=== PATIENT | male | born 1995 | race Caucasian/White ===

== ENCOUNTER 2016-11-09 19:19 | Emergency (ER) | payer BC ==
[2016-11-09 21:04] VITALS: BP 123/65
--- NOTE | 2016-11-09 21:31 | UC ---
FLU HPI - HPI Summary HPI Summary: 21 male presents to with complaints of cough, congestion and feeling tired for the past week. Patient states his symptoms began like a cold and have seemed to worsen and not get better. Denies nausea, vomiting, fever, trouble breathing, chest pain and sore throat. No other complaints. Took one Mucinex yesterday and it seemed to worsen his cough. Also tried OTC sinus medication and ibuprofen without relief. No PMHx. - History of Current Complaint Chief Complaint: UCRespiratory Stated Complaint: CONGESTION/COUGH Time Seen by Provider: 11/09/16 21:14 Hx Obtained From: Patient Onset/Duration: Sudden Onset, Lasting Weeks, Still Present, Worse Since Severity Currently: Mild Severity Initially: Moderate Pain Intensity: 0 Pain Scale Used: 0-10 Numeric Associated Signs & Symptoms: Positive: Cough, Nasal Congestion, Headache - Allergy/Home Medications Allergies/Adverse Reactions: Allergies Allergy/AdvReac Type Severity Reaction Status Date / Time No Known Allergies Allergy Verified 11/09/16 21:04 PMH/Surg Hx/FS Hx/Imm Hx - Additional Past Medical History Additional PMH: No DM HTN or asthma - Surgical History Surgical History: Yes Surgery Procedure, Year, and Place: DENTAL SURGERY - Family History Known Family History: Positive: Unknown - Social History Alcohol Use: Occasionally Substance Use Type: None Smoking Status (MU): Never Smoked Tobacco Review of Systems Constitutional: Negative Eyes: Negative ENT: Nasal Discharge, Sinus Congestion Respiratory: Cough Cardiovascular: Negative Gastrointestinal: Negative Musculoskeletal: Negative Neurological: Headache All Other Systems Reviewed And Are Negative: Yes Physical Exam Triage Information Reviewed: Yes Appearance: Well-Appearing, No Pain Distress, Well-Nourished Vital Signs: Initial Vital Signs Temp 98.8 F 11/09/16 20:59 Pulse 71 11/09/16 20:59 Resp 16 11/09/16 20:59 BP 123/65 11/09/16 20:59 Pulse Ox 100 11/09/16 20:59 afebrile, non hypoxic Vital Signs Reviewed: Yes Eyes: Positive: Conjunctiva Clear ENT: Positive: Normal ENT inspection, Hearing grossly normal, Pharynx normal, Nasal drainage, TMs normal - serous effusion b/l. Negative: Nasal congestion, Tonsillar swelling, Tonsillar exudate, Trismus, Muffled/hoarse voice Dental: Negative: Percussion Tenderness @, Cervical Lymphadenopathy Neck: Positive: Supple, Nontender Respiratory: Positive: Chest non-tender, Lungs clear, Normal breath sounds, No respiratory distress, No accessory muscle use. Negative: Respiratory distress, Decreased breath sounds, Crackles, Rhonchi, Stridor, Wheezing, Expiration Cardiovascular: Positive: RRR, No Murmur, Pulses Normal Abdomen Description: Positive: Nontender, Soft Bowel Sounds: Positive: Present Musculoskeletal: Positive: Strength Intact, ROM Intact Neurological: Positive: Alert Skin Exam: Normal Flu Course/Dx - Course Course Of Treatment: appears to be suffering from UTI. symptomatic measures. serous effusion b/l. claritin, emergen-c, flonase and mucinex. Follow up with health center. aware of wrosening signs and symptoms. fluids and rest. - Differential Dx/Diagnosis Differential Diagnosis/HQI/PQRI: Bronchitis, Influenza, Upper Respiratory Infection Provider Diagnoses: URI Discharge - Discharge Plan Condition: Stable Disposition: HOME Patient Education Materials: Upper Respiratory Infection (ED) Referrals: [facility] [place] [facility] [Outside] Additional Instructions: Recommend taking Claritin, using Flonase nasal spray, continue Mucinex and taking Emergen-C to help with symptoms. Cough medicine at night if cough is keeping you up at night. Continue to rest and increase fluid intake. Recommend taking it easy for the next couple of days to allow immune system to fight infection. Symptoms may linger up to 3 weeks. If symptoms do not improve or worsen please seek medical attention promptly, as discussed. Follow up with Health Center to ensure improvement.
== END 2016-11-09 21:40 | disposition home or self-care (01) ==
LOC: UCCORT 19:19
DX: J06.9 Acute upper respiratory infection, unspecified (principal)
CPT/HCPCS: 99201; G0463

== ENCOUNTER 2017-04-20 16:16 | Emergency (ER) | payer BC ==
[2017-04-20 16:33] VITALS: BP 118/73
--- NOTE | 2017-04-20 17:22 | UC ---
Respiratory Complaint HPI - HPI Summary HPI Summary: 2-3 weeks of worsening sinus pain and congestion, thick green nasal drainage, ear and nasal congestion - History of Current Complaint Chief Complaint: UCGeneralIllness Stated Complaint: COUGH, CONGESTION Time Seen by Provider: 04/20/17 17:17 Hx Obtained From: Patient Onset/Duration: Gradual Onset, Lasting Weeks - 3, Still Present Timing: Constant Severity Initially: Moderate Severity Currently: Moderate Pain Intensity: 7 Pain Scale Used: 0-10 Numeric Aggravating Factors: Nothing Alleviating Factors: Nothing Associated Signs And Symptoms: Positive: URI, Nasal Congestion, Sinus Discomfort - Allergies/Home Medications Allergies/Adverse Reactions: Allergies Allergy/AdvReac Type Severity Reaction Status Date / Time DUST Allergy Dry Eyes Uncoded 04/20/17 16:24 Home Medications: Home Medications Ascorbic Acid/Multivit-Min [Emergen-C 1,000 mg Packet] 04/20/17 [History] D-Methorphan/PE/Acetaminophen [Cold Multi-Symptom [place]] 04/20/17 [History] Ibuprofen 600 mg PO 04/20/17 [History] Levocetirizine Dihydrochloride [Xyzal] 5 mg PO 04/20/17 [History] Loratadine [Claritin] 04/20/17 [History] guaiFENesin [Mucinex] 04/20/17 [History] PMH/Surg Hx/FS Hx/Imm Hx Previously Healthy: Yes - Surgical History Surgical History: Yes Surgery Procedure, Year, and Place: DENTAL SURGERY - Family History Known Family History: Positive: Unknown - Social History Occupation: Student Lives: With Family Alcohol Use: Occasionally Substance Use Type: None Smoking Status (MU): Never Smoked Tobacco Household Exposure Type: Cigarettes Review of Systems Constitutional: Fatigue Skin: Negative Eyes: Negative ENT: Nasal Discharge, Sinus Congestion, Sinus Pain/Tenderness Respiratory: Negative Cardiovascular: Negative Gastrointestinal: Negative Genitourinary: Negative Motor: Negative Neurovascular: Negative Musculoskeletal: Negative Neurological: Headache Psychological: Negative Is Patient Immunocompromised?: No All Other Systems Reviewed And Are Negative: Yes Physical Exam Triage Information Reviewed: Yes Appearance: Well-Nourished, Ill-Appearing - mild, Pain Distress - mild Vital Signs: Initial Vital Signs Temp 98.2 F 04/20/17 16:28 Pulse 72 04/20/17 16:28 Resp 16 04/20/17 16:28 BP 118/73 04/20/17 16:28 Pulse Ox 96 04/20/17 16:28 Vital Signs Reviewed: Yes Eye Exam: Normal Eyes: Positive: Conjunctiva Clear ENT Exam: Normal ENT: Positive: Normal ENT inspection, Hearing grossly normal, Pharynx normal, Nasal congestion, Nasal drainage, TMs normal, Sinus tenderness, Uvula midline. Negative: Tonsillar swelling, Tonsillar exudate, Trismus, Muffled voice, Hoarse voice, Dental tenderness Dental Exam: Normal Neck exam: Normal Neck: Positive: Supple, Nontender, No Lymphadenopathy Respiratory Exam: Normal Respiratory: Positive: Chest non-tender, Lungs clear, Normal breath sounds, No respiratory distress, No accessory muscle use Cardiovascular Exam: Normal Cardiovascular: Positive: RRR, No Murmur, Pulses Normal, Brisk Capillary Refill Musculoskeletal Exam: Normal Musculoskeletal: Positive: Strength Intact, ROM Intact, No Edema Neurological Exam: Normal Neurological: Positive: Alert, Muscle Tone Normal Psychological Exam: Normal Skin Exam: Normal UC Diagnostic Evaluation - Laboratory O2 Sat by Pulse Oximetry: 96 Respiratory Course/Dx - Course Course Of Treatment: incrrease fluids, mucinex d, flonase, augmentin follow with [facility] as needed - Differential Dx/Diagnosis Provider Diagnoses: Acute rhinosinusitis Discharge - Discharge Plan Condition: Stable Disposition: HOME Prescriptions: Amoxicillin/Clavulanate TAB* [Augmentin TAB 875*] 875 mg PO BID #20 tab Fluticasone NASAL SPRAY 50MCG* [Flonase NASAL SPRAY 50MCG*] 2 spray BOTH NARES DAILY #1 btl Patient Education Materials: Sinusitis (ED) [facility] [Outside[facility] - If Needed
== END 2017-04-20 17:30 | disposition home or self-care (01) ==
LOC: UCCORT 16:16
DX: J01.90 Acute sinusitis, unspecified (principal)
CPT/HCPCS: 99212; G0463